=== PATIENT | female | born 1965 | race Caucasian/White ===

== ENCOUNTER 2016-06-23 10:56 | Day surgery (SDC) | payer MEDICARE ==
[~2016-06-23] VITALS: Ht 165.1 cm; Wt 68.9 kg
[~2016-06-23 10:56] MED LIST: FLEXERIL10 MG PO; HYDROCODONE1 TABLET PO; LORTAB 5/500 501 TAB PO; NEXIUM40 MG PO; NORCO 325 MG-51 TAB PO; XANAX 1MG TABLET1 MG PO; ZESTORETIC 12.51 TAB PO
--- NOTE | 2016-06-23 12:16 | Operative Note ---
Surgeon/Diagnoses Surgeon/Fibrous Wallboard Inspector(s) Date of procedure: 06/23/16 Surgeon: MD Shara Farias Diagnoses Pre-op diagnosis: Heartburn Post-op diagnosis Gastritis Procedure Procedure Procedure: Esophagogastroduodenoscopy with biopsy Indications: NINA SOTO is a 51 year-old Female with a history of persistent heartburn. Findings: Gastroesophageal junction at 30 cm Moderate degree of food particles within stomach consistent with possible gastroparesis Streaking gastritis distally Procedure Description: After informed consent was obtained, the patient was taken to the endoscopy suite. Monitored anesthesia care ensued after she was transferred to the LEFT lateral decubitus position. The gastroscope was advanced. The gastroesophageal junction was at 30 cm. The stomach was entered. A moderate amount of food particles and debris remained in the stomach. This is consistent with possible gastroparesis. Streaking gastritis distally was also noted. Retroflexion revealed minimal inflammation. The pylorus was intubated. The duodenal mucosa appeared normal. A biopsy of the antrum was obtained at the time of gastroscope removal. The patient was transferred to recovery in stable condition. EBL (ml): 1 Anesthesia: Monitored anesthesia care Complications: No immediate Specimens: Biopsy of gastric antrum Disposition Disposition: Stable to recovery from where she will be discharged home. She will follow-up in one week. at 121
[2016-06-23 13:06] VITALS: BP 145/88
--- NOTE | 2016-06-25 14:57 | RADIOLOGY REPORT PS360 ---
DIG MAMM-SCREEN DAISY W/CAD ORDERING PHYSICIAN : DARY FARIAS MD PATIENT AGE: 51 years GENDER: Female COMPARISON: Previous mammograms: Not available the previous mammogram studies from 2004Have been purgedas per administrative/management protocols. INDICATION: Routine screening . TECHNIQUE: Standard CC and MLO images were obtained. R2 CAD reviewed. Additional axillary cc views both breast FINDINGS: Moderately dense breast bilaterally which decreases sensitivity of mammography. With mild to moderate asymmetry. RIGHT BREAST: There is asymmetric density at the deep medial right breast on initial cc view. Less pronounced but is seen on a axillary cc view and MLO view is well. This would benefit from spot views and an ultrasound to further evaluate right breast LEFT BREAST: Subtle nodularity superior right breast on MLO view and deep axillary left breast. I believe merely normal fibroglandular elements but would suggest a spot views upper-outer quadrant left breast with patient returns. Also ultrasound left breast given its moderate density. CAD highlights density at superior left breast which included with spot views IMPRESSION: ...... Right breast Focal Asymmetric area of density, deep right breast. Most likely is asymmetric island of glandular tissue but would benefit from spot views & ultrasound. Left breast Although most likely dense glandular tissue with Also suggest obtaining spot views of the deep axillary left breast when patient returns. Bilateral breast ultrasound also suggested when patient returns this fairly dense breast BI-RADS CATEGORY: 0_Incomplete: Need additional imagin RECOMMENDED FOLLOWUP: BILATERAL SPOT VIEWS & BILATERAL BREAST ULTRASOUND Area of most significant concern is asymmetric focus deep medial right breast (A letter has been sent to the patient regarding results of the study.) Image
== END 2016-06-23 12:52 | disposition home or self-care (01) ==
LOC: SDC 10:56
PROVIDERS: Surgery
PROC: 0DB68ZX Excision of Stomach, Via Natural or Artificial Opening Endoscopic, Diagnostic (ICD-10-PCS; principal; 2016-06-23 11:30)
DX: K29.70 Gastritis, unspecified, without bleeding (principal); Z12.31 Encounter for screening mammogram for malignant neoplasm of breast
CPT/HCPCS: G0202

== ENCOUNTER → 2016-07-29 | Outpatient (CLI) | payer MEDICARE ==
[2016-07-29 16:03] LABS: CORONAVIRUS 229E NOT DETECTED (NOT DETECTE); CORONAVIRUS HKU 1 NOT DETECTED (NOT DETECTE); CORONAVIRUS NL63 NOT DETECTED (NOT DETECTE); CORONAVIRUS OC43 NOT DETECTED (NOT DETECTE); RHINOVIRUS/ENTEROVIRUS NOT DETECTED (NOT DETECTE)
[2016-07-29 16:42] LABS: LYMPH # 1.9 K/mm3 (0.7-4.5); LYMPH % 34.8 % (10-50.0)
[2016-07-29 17:07] LABS: URINE BILIRUBIN - DIPSTICK NEGATIVE (NEG); URINE BLOOD NEGATIVE (NEG)
[2016-07-29 17:15] LABS: AMPHETAMINES/METAMPHETAMINES NEGATIVE ng/mL (<1000)
[2016-07-29 17:33] LABS: BUN 11 mg/dL (7-18)
[2016-07-29 17:52] LABS: GFR (ESTIMATED) 75 ML/MIN (59-)
== END ==
LOC: LAB 15:59
PROVIDERS: Internal Medicine Adolescent Medicine
DX: R50.9 Fever, unspecified (principal); G89.4 Chronic pain syndrome; R05 Cough

== ENCOUNTER → 2017-02-17 | Outpatient (CLI) | payer MEDICARE ==
[~2017-02-17] MED LIST changes: +KEFLEX 500MG.500 MG PO; +TRAZODONE150 MG PO
--- NOTE | 2017-02-17 20:52 | RADIOLOGY REPORT PS360 ---
DIG MAMM- DAISY ADD VIEWS W/CAD Ordering Physician: Corinna Mattson APRN Patient Age: 52 years Female COMPARISON: Previous baseline mammogram June 2016 INDICATION: Follow-up asymmetric areas of density both breast TECHNIQUE: Spot MLO and CC views of both breasts performed along with 90 degree view right and left breast, and no focal rolled spot CC right breast. ... DIAGNOSTIC BILATERAL MAMMOGRAM WITH SPOT VIEWS.... FINDINGS: Dense breast are seen bilaterally.. This decreases sensitivity of mammography. Right breast is a focal density deep right breast initially seen but becomes less evident on the focal spine and MLO, and 90 degrees views. Certainly previously dissipate on the axillary cc view. Nonetheless ultrasound be performed to survey right breast. The left breast. Dense inhomogeneous appearance. Areas of density at the lateral left breast are less evident. The area of density superior left breast noted but most likely normal planar tissue. However because of the breast density ultrasound will be performed on left as well as right. ... BILATERAL BREAST ULTRASOUND history axillary survey. TECHNIQUE. Hand-held ultrasound of both breast of the sagittal and transverse views submitted. Accessory survey both breast included. LEFT BREAST ULTRASOUND: dense breast tissue. Fibrous character. No cyst nor mass.. RIGHT BREAST ULTRASOUND:Dense breast tissue. No cyst or solid mass. No architectural distortion Axillary survey both breast unremarkable as well IMPRESSION: Dense breast bilaterally decreased sensitivity mammography Right breast: Focal density at the deep medial right breast seen on cc view seems to dissipate on other views with no corresponding abnormality here on ultrasound. Left breast. Dense breast with no focal areas of concern on mammography. Ultrasound both breasts performed and reveals no areas of concern either breast. Bilateral follow-up in 6 months to resume annual mammography schedule BI-RADS CATEGORY: 2_Benign RECOMMENDED FOLLOWUP: 6M 6MONTH FOLLOW-UP Bilateral mammogram at 6 months (A letter has been sent to the patient regarding results of the study.) study.)
--- NOTE | 2017-02-18 23:34 | RADIOLOGY REPORT PS360 ---
DIG MAMM- DAISY ADD VIEWS W/CAD Ordering Physician: Corinna Mattson APRN Patient Age: 52 years Female COMPARISON: Previous baseline mammogram June 2016 INDICATION: Follow-up asymmetric areas of density both breast TECHNIQUE: Spot MLO and CC views of both breasts performed along with 90 degree view right and left breast, and no focal rolled spot CC right breast. ===== ... DIAGNOSTIC BILATERAL MAMMOGRAM WITH SPOT VIEWS.... FINDINGS: Dense breast are seen bilaterally.. This decreases sensitivity of mammography. Right breast is a focal density deep right breast initially seen but becomes less evident on the focal spine and MLO, and 90 degrees views. Certainly previously dissipate on the axillary cc view. Nonetheless ultrasound be performed to survey right breast. The left breast. Dense inhomogeneous appearance. Areas of density at the lateral left breast are less evident. The area of density superior left breast noted but most likely normal planar tissue. However because of the breast density ultrasound will be performed on left as well as right. ====== ... BILATERAL BREAST ULTRASOUND history axillary survey. TECHNIQUE. Hand-held ultrasound of both breast of the sagittal and transverse views submitted. Accessory survey both breast included. LEFT BREAST ULTRASOUND: dense breast tissue. Fibrous character. No cyst nor mass.. RIGHT BREAST ULTRASOUND:Dense breast tissue. No cyst or solid mass. No architectural distortion Axillary survey both breast unremarkable as well ==== IMPRESSION: Dense breast bilaterally decreased sensitivity mammography Right breast: Focal density at the deep medial right breast seen on cc view seems to dissipate on other views with no corresponding abnormality here on ultrasound. Left breast. Dense breast with no focal areas of concern on mammography. Ultrasound both breasts performed and reveals no areas of concern either breast. Bilateral follow-up in 6 months to resume annual mammography schedule BI-RADS CATEGORY: 2_Benign RECOMMENDED FOLLOWUP: 6M 6MONTH FOLLOW-UP Bilateral mammogram at 6 months (A letter has been sent to the patient regarding results of the study.)
== END ==
LOC: RAD 13:37
DX: R92.8 Other abnormal and inconclusive findings on diagnostic imaging of breast (principal); R59.1 Generalized enlarged lymph nodes
CPT/HCPCS: G0204